=== PATIENT | female | born 1985 | race Two or more races ===

== ENCOUNTER 2019-10-27 02:32 | Emergency (ER) | payer BC, OTHER ==
[~2019-10-27] VITALS: Ht 157.5 cm; Wt 59.0 kg
[~2019-10-27 02:32] MED LIST: HYDR-3164 PO; NAPR500T8 PO
[2019-10-27 03:22] LABS: BASO % 0 % (0-3); EOS # 0.2 x10^3/uL (0.0-0.7); EOS % 1 % (0-3); HEMATOCRIT 39.6 % (36.0-47.0); LYMPH # 1.9 x10^3/uL (1.0-4.8); LYMPH % 16 % (24-48); MEAN CORPUSCULAR HEMOGLOBIN 29 pg (25-35); MEAN CORPUSCULAR HGB CONC 36 g/dL (31-37); MEAN CORPUSCULAR VOLUME 83 fL (79-100); MONO # 0.6 x10^3/uL (0.0-1.1); MONO % 5 % (0-9); NEUT # 8.8 x10^3/uL (1.8-7.7); NEUT % 77 % (31-73); PLATELET COUNT 226 x10^3/uL (140-400); RED BLOOD COUNT 4.77 x10^6/uL (3.50-5.40); RED CELL DISTRIBUTION WIDTH 12.5 % (11.5-14.5); WHITE BLOOD COUNT 11.5 x10^3/uL (4.0-11.0)
[2019-10-27 03:39] LABS: CALCIUM 8.6 mg/dL (8.5-10.1); GFR 63.5; POTASSIUM 3.1 mmol/L (3.5-5.1)
--- NOTE | 2019-10-27 03:40 | PHYS DOC ---
Past Medical History Smoking Status: Never Smoker General Adult EDM: Chief Complaint: ABDOMINAL PAIN HPI: HPI: Patient is a 34 year old female presents with a chief complaint of left lower abdominal and left flank pain. Onset of symptoms 2300 hrs. Patient pain is progressively worse since onset. Patient denies any associated nausea or vomiting or urinary symptoms. Review of Systems: Review of Systems: Constitutional: Denies fever or chills. [] Eyes: Denies change in visual acuity. [] HENT: Denies nasal congestion or sore throat. [] Respiratory: Denies cough or shortness of breath. [] Cardiovascular: Denies chest pain or edema. [] GI: Positive abdominal pain, denies nausea, vomiting, bloody stools or diarrhea. [] : Denies dysuria. [] Musculoskeletal: Positive back pain Integument: Denies rash. [] Neurologic: Denies headache, focal weakness or sensory changes. [] Endocrine: Denies polyuria or polydipsia. [] Lymphatic: Denies swollen glands. [] Psychiatric: Denies depression or anxiety. [] Heart Score: Risk Factors: Risk Factors: DM, Current or recent (<one month) smoker, HTN, HLP, family history of CAD, obesity. Risk Scores: Score 0 - 3: 2.5% MACE over next 6 weeks - Discharge Home Score 4 - 6: 20.3% MACE over next 6 weeks - Admit for Clinical Observation Score 7 - 10: 72.7% MACE over next 6 weeks - Early Invasive Strategies Allergies: Allergies: Allergies Coded Allergies Type Severity Reaction Last Updated Verified No Known Drug Allergies 05/10/15 No Physical Exam: PE: Constitutional: Well developed, well nourished, no acute distress, non-toxic appearance. [] HENT: Normocephalic, atraumatic, bilateral external ears normal, oropharynx moist, no oral exudates, nose normal. [] Eyes: EOMI, conjunctiva normal, no discharge. [] Neck: Normal range of motion, no tenderness, supple, no stridor. [] Cardiovascular:Heart rate regular rhythm, no murmur [] Lungs & Thorax: No respiratory distress Abdomen: , soft, no tenderness, no masses, Skin: Warm, dry, no erythema, no rash. [] Back: No tenderness, no CVA tenderness. [] Extremities: No tenderness, no cyanosis, no clubbing, ROM intact, no edema. [] Neurologic: Alert and oriented X 3, normal motor function, normal sensory function, no focal deficits noted. [] Psychologic: Affect normal, judgement normal, mood normal. [] Current Patient Data: Labs: Laboratory Tests Test 10/27/19 03:15 White Blood Count 11.5 x10^3/uL (4.0-11.0) H Red Blood Count 4.77 x10^6/uL (3.50-5.40) Hemoglobin 14.0 g/dL (12.0-15.5) Hematocrit 39.6 % (36.0-47.0) Mean Corpuscular Volume 83 fL (79-100) Mean Corpuscular Hemoglobin 29 pg (25-35) Mean Corpuscular Hemoglobin Concent 36 g/dL (31-37) Red Cell Distribution Width 12.5 % (11.5-14.5) Platelet Count 226 x10^3/uL (140-400) Neutrophils (%) (Auto) 77 % (31-73) H Lymphocytes (%) (Auto) 16 % (24-48) L Monocytes (%) (Auto) 5 % (0-9) Eosinophils (%) (Auto) 1 % (0-3) Basophils (%) (Auto) 0 % (0-3) Neutrophils # (Auto) 8.8 x10^3/uL (1.8-7.7) H Lymphocytes # (Auto) 1.9 x10^3/uL (1.0-4.8) Monocytes # (Auto) 0.6 x10^3/uL (0.0-1.1) Eosinophils # (Auto) 0.2 x10^3/uL (0.0-0.7) Basophils # (Auto) 0.0 x10^3/uL (0.0-0.2) Laboratory Tests 10/27/19 03:15 EKG: EKG: [] Radiology/Procedures: Radiology/Procedures: [] Impression: Stone Left UVJ Treated with toradol and flomax. Discharged home on flomax and norco. Course & Med Decision Making: Course & Med Decision Making Pertinent Labs and Imaging studies reviewed. (See chart for details) [] Dragon Disclaimer: Dragon Disclaimer: This electronic medical record was generated, in whole or in part, using a voice recognition dictation system. Departure Departure Impression: Primary Impression: Kidney stone on left side Disposition: HOME, SELF-CARE Condition: STABLE Referrals: NO PCP (PCP) Patient Instructions: Kidney Stones Scripts Hydrocodone/Apap 5-325 (NORCO 5-325 TABLET) 1 Each Tablet 1 TAB PO TID, #20 TAB Prov: KIMBERLEY MATTHEWS DO 10/27/19 Tamsulosin Hcl (FLOMAX) 0.4 Mg Cap.er.24h 0.4 MG PO DAILY, #20 TAB Prov: KIMBERLEY MATTHEWS DO 10/27/19 Justicifation of Admission Dx: Justifications for Admission: Justification of Admission Dx: N/A KIMBERLEY MATTHEWS DO Oct 27, 2019 03:40
[2019-10-27 03:41] LABS: BILIRUBIN,URINE NEGATIVE (NEG); CLARITY,URINE CLEAR; COLOR,URINE YELLOW; NITRITE,URINE NEGATIVE (NEG); PROTEIN,URINE NEGATIVE (NEG-TRACE)
[2019-10-27 03:44] LABS: ALBUMIN 3.7 g/dL (3.4-5.0); ALBUMIN/GLOBULIN RATIO 1.1 (1.0-1.7); TOTAL BILIRUBIN 0.6 mg/dL (0.2-1.0); TOTAL PROTEIN 7.1 g/dL (6.4-8.2)
[2019-10-27 03:47] LABS: SQUAMOUS EPITHELIAL CELL,UR MOD /LPF; U PREG PATIENT NEGATIVE (NEG)
[2019-10-27 03:49] LABS: BACTERIA,URINE MODERATE /HPF (0-FEW)
--- NOTE | 2019-10-27 04:19 | RAD ---
CT abdomen pelvis without contrast. HISTORY: Left flank pain. CT scan the abdomen pelvis was done without contrast. Lung bases are clear. There is no effusion. Liver is normal in appearance. There is no calcified gallstone. Spleen and adrenal glands are normal. Is no mass or hydronephrosis in the right kidney. There is a 3 mm calculus at the upper pole of the left kidney. There is left hydronephrosis. There is a 3 mm calculus at the left ureterovesical junction or just into the bladder. Uterus and ovaries are normal. There is an intrauterine contraceptive device. Appendix is normal. Small bowel pattern is normal. There is no free fluid. Bowel pattern is normal. IMPRESSION: 1. Intrarenal calculus left kidney. 2. Left hydronephrosis. 3. 3 mm calculus at the left ureterovesical junction or just into the bladder. 4. Normal appendix. 5. No other acute finding noted. PQRS Compliance Statement: One or more of the following individualized dose reduction techniques were utilized for this examination: 1. Automated exposure control 2. Adjustment of the mA and/or kV according to patient size 3. Use of iterative reconstruction technique Electronically signed by: Ace Garcia MD (10/27/2019 4:16 AM) [id number]
[2019-10-27] MEDS ORDERED: TAMS0.4C97 PO (04:28)
[2019-10-27] MEDS ORDERED: HYDR-3164 PO (04:28)
[2019-10-27 04:32] VITALS: BP 132/85
[2019-10-27 04:35] LABS: PROTHROMBIN TIME PATIENT 13.4 SEC (11.7-14.0)
[2019-10-27] MEDS ORDERED: KETOROLAC 30 MG/ML VIAL. IVP ONE (04:45)
[2019-10-27] MEDS ORDERED: TAMSULOSIN 0.4 MG CAP.ER.24H. PO ONE (04:45)
== END 2019-10-27 04:55 | disposition home or self-care (01) ==
LOC: ER 02:32
DX: N20.0 Calculus of kidney (principal); R10.32 Left lower quadrant pain
CPT/HCPCS: 36415; 74176; 80053; 81001; 81025; 83690; 85025; 85610; 85730; 87086; 96374; 99284; J1885